=== PATIENT | male | born 1965 | race Caucasian/White ===

== ENCOUNTER 2019-08-27 14:14 | Inpatient (IN) | payer MEDICAID, SELFPAY ==
[2019-08-27] VITALS (11 sets, daily range): BP systolic 118–162; BP diastolic 69–109; PULSE 94–102; RESP 16–21; TEMP 36.2–37.1; O2SAT 94–99; BMI 32.2; BMI 27.1; BMI 27.2
[2019-08-27] MEDS: Naloxone 2 MG/2 ML Syringe IV (14:18)
--- NOTE | 2019-08-27 14:21 | CT_ITS ---
STUDY: CT BRAIN WITHOUT CONTRAST REASON FOR EXAM: Male, 53 years old. Unresponsive while cutting wood, hx seizures. RADIATION DOSAGE (If Supplied By Facility): CTDIvol = ( 44.99 ) mGy, DLP = ( 829.85 ) mGycm TECHNIQUE: Transaxial CT imaging of the brain was performed without administration of intravenous contrast material. Individualized dose optimization techniques were used for this CT. COMPARISON: No relevant priors. FINDINGS: Normal soft tissue structures. Normal calvarium. There is mild cerebral atrophy with widening of the extra-axial spaces and ventricular dilatation. There are a few areas of decreased attenuation within the white matter tracts of the supratentorial brain, consistent with microvascular disease changes. There is subtle low attenuation within the posterior aspect of the internal capsule suggesting possible prior ischemic change. Normal brainstem. Normal cerebellum. There is no intracranial hemorrhage. There are no findings of an acute ischemic infarction. Normal visualized paranasal sinuses. CT/Brain/Head without Contrast IMPRESSION: Mild atrophy no evidence of acute hemorrhage infarct or edema. Electronically Signed: Sofía Vargas MD at 14:51 EST Tel , Service support ,
--- NOTE | 2019-08-27 14:22 | EKG12_ITS ---
Test Reason : UNRESPONSIVE Blood Pressure : / mmHG Vent. Rate : 102 BPM Atrial Rate : 102 BPM P-R Int : 194 ms QRS Dur : 090 ms QT Int : 342 ms P-R-T Axes : 066 008 019 degrees QTc Int : 445 ms Sinus tachycardia Otherwise normal ECG Confirmed by SUKHDEV GILLESPIE MD ([id number]), development editor NICK SAMPSON ([id number] on 08/29/2019 3:15:11 PM Referred By: SHARMIN Confirmed By:SUKHDEV GILLESPIE MD
[2019-08-27 14:25] LABS: Bedside Glucose 126 mg/dL (70-110)
--- NOTE | 2019-08-27 14:25 | RAD_ITS ---
STUDY: X-RAY CHEST REASON FOR EXAM: Male, 53 years old. UNRESPONSIVE TECHNIQUE: Single AP portable view of the chest. COMPARISON: Prior comparison studies are not available for review at this time. FINDINGS: The lungs are clear and expanded. There is no demonstrated pleural abnormality. There is borderline cardiomegaly. Normal mediastinum and víctor. Normal visualized pulmonary arteries. The thoracic spine is not well-seen. Normal visualized thoracic spine. Normal visualized ribs, clavicles, and shoulders. There is no demonstrated abnormality of the visualized soft tissue structures of the upper abdomen. RAD/Chest 1 View (Portable) IMPRESSION: No active pulmonary disease. Electronically Signed: Rohit Jacobo MD at 14:57 EST Tel , Service support ,
[2019-08-27 14:37] LABS: Absolute Neutrophil Count 2.5 X10^3/uL (2.0-7.7); Basophil# 0.05 X10^3/uL; Basophil% 0.7 % (0-1); Eosinophil# 0.24 X10^3/uL; Eosinophils% 3.4 % (0-5); Hematocrit 34.4 % (40-54); Hemoglobin 11.3 g/dL (13.0-16.5); Lymphocyte % 50.7 % (19-41); Mean Corp Hgb Conc 32.8 g/dL (32-36); Mean Corpuscular Hgb 28.1 pg (27.0-32.0); Mean Corpuscular Volume 85.6 fL (80-94); Mean Platelet Vol. 10.2 fl (6.2-12.0); Monocyte# 0.67 X10^3/uL; Monocyte% 9.4 % (0-10); NRBC Flagged by Analyzer 0 % (0-5); Neutrophil # 2.52 X10^3/uL (2.7-7.7); Neutrophil % 35.5 % (47-70); Platelet Count 175 K/mm3 (150-450); RBC Distribution Width CV 12.7 % (11.6-14.6); Red Blood Count 4.02 M/mm3 (4.6-6.2); White Blood Count 7.1 K/mm3 (4.4-11.0)
[2019-08-27 14:38] LABS: International Normalized Ratio 1.1; Prothrombin Time (Protime)PT. 13.6 SECONDS (11.7-14.9)
[2019-08-27 14:39] LABS: Partial Thromboplast Time 30.5 Seconds (24.1-36.2)
[2019-08-27 14:44] LABS: Bacteria 0 SEEN /hpf (None Seen); Mucous, Urine 0 SEEN /hpf (<or=2+); Red Blood Cells-Urine 0 SEEN /hpf (0-5)
[2019-08-27 14:46] LABS: Color, Urine Yellow (Yellow); Glucose, Dipstick Normal (Normal); Ketone-Dipstick Negative (Negative); Leukocyte Esterase-Dipstick 25 /ul (Negative); Nitrite-Dipstick Negative (Negative); Occult Blood-Urine 50 /ul (Negative); Protein-Dipstick 100 mg/dl (Negative); Specific Gravity, Urine 1.025 (1.002-1.030); Urine Bilirubin Dipstick Negative (Negative); Urine Clarity Clear (Clear); Urine Urobilinogen 1 mg/dl (Normal)
[2019-08-27 14:46] LABS: Anion Gap 8 (5-15); BUN 61 mg/dL (7-18); Calcium,Total 9.4 mg/dL (8.5-10.1); Chloride 106 mmol/L (98-107); Creatinine, Serum 3.05 mg/dL (0.70-1.30); EST Glomerular Filtration Rate 23 mL/min (>60); Est Glom Filt Rate - Afr Amer 28 mL/min (>60); Estimated Creatinine Clearance 30.74 ml/min; Glucose 145 mg/dL (74-106); Potassium 4.5 mmol/L (3.5-5.1); Sodium Level 139 mmol/L (136-145)
[2019-08-27 14:47] LABS: Alcohol, Blood (Medical)-Serum < 3.0 mg/dL
[2019-08-27 14:53] LABS: White Blood Cells 0-5 SEEN /hpf (0-5)
[2019-08-27 14:54] LABS: Amorphous Sediment 2+; Squamous Epithelial Cells - UA 0-5 SEEN /hpf (0-5)
[2019-08-27] MEDS: 0.9% Normal Saline 1,000 ML 150 ML IV ×2 (15:02→22:11)
[2019-08-27 15:11] LABS: Amphetamine Urine VISTA NEGATIVE (<1000 ng/mL); Barbiturate Urine VISTA NEGATIVE (< 200 ng/mL); Benzodiazepine Urine VISTA NEGATIVE (< 200 ng/mL); Cocaine Urine VISTA NEGATIVE (< 300 ng/mL); Ecstacy Urine VISTA NEGATIVE (< 500 ng/mL); Methadone Urine VISTA NEGATIVE (< 300 ng/mL); PCP Urine VISTA NEGATIVE (< 25 ng/mL); THC Urine VISTA NEGATIVE (< 50 ng/mL); Vista UDS pH Range 5
[2019-08-27] MEDS: levETIRAcetam IV 1,000 MG/100 ML BAG 400 MG IV (15:57)
--- NOTE | 2019-08-27 16:42 | ED.VIS.GEN ---
History of Present Illness Chief Complaint: Unresponsive Informant: Park Aide Onset: Today Narrative: Patient brought in by EMS for unresponsiveness. Reported found by his significant other of 2 weeks outside [facility]. Known diabetic blood glucose 130s. Status post 2 mg of intranasal Narcan. Unknown medical history except for diabetes. No additional information on initial evaluation. Later discussion with nurse with a sister states he has known seizure history supposed be on Keppra however is not taking his medications. He was admitted May in the hospital in the ICU secondary to requiring intubation due to combativeness. Significant other was present states she lives down here and patient was visiting, he was out in the back cutting logs when she checked on him he was face down last normal was 30 minutes prior. Patient is doing well prior to symptoms. Prior similar symptoms: Yes Past Medical History - Allergies and Home Meds Allergies/Adverse Reactions: Allergies metoclopramide [From Reglan] Allergy (Verified 08/27/19 14:41) Unknown Penicillins [PCN] Allergy (Verified 08/27/19 14:41) Unknown Past Medical History: - - Seizure history, stage IV chronic kidney disease, diabetes Smoking Status: Unknown if ever smoked Review of Systems ROS: Unable to Obtain Physical Exam Vital Signs/Narrative: Vital Signs Temp Pulse Resp BP Pulse Ox 08/27/19 16:38 97.9 F 94 17 131/81 H 94 08/27/19 16:04 97.7 F L 97 16 140/84 H 97 08/27/19 15:35 97 18 97 08/27/19 15:02 97.7 F L 100 17 118/90 H 97 08/27/19 14:45 101 H 18 118/90 H 97 08/27/19 14:20 20 H 08/27/19 14:15 97.2 F L 102 H 21 H 121/76 H 99 Inital Vital Signs reviewed: Yes General: - - Patient unresponsive, clenching her teeth, sternal rub did note some contractures bilateral upper extremities. Patient protecting his airway, however noted some snoring. Head: Normocephalic, Atraumatic Eyes: Perrl, EOMI, - - No pinpoint pupils. ENT: Moist mucous membranes Cardiovascular: Regular rate, Tachycardia Respiratory: No distress, CTA bilaterally, Chest nontender Abdomen: Soft, Nontender, Nondistended, Normal bowel sounds Extremities: Nontender, No edema, - - There was left foot toe amputations. Skin: Normal color, No rash Neurological: - - Unresponsive no focal deficits. Diagnostic/Tx/Re-eval Chest X-Ray - ED: 1 View, Read by Radiologist, No Acute Disease Clinical Impression(s) from Imaging Studies Brain CT 08/27/19 14:21 IMPRESSION: Mild atrophy no evidence of acute hemorrhage infarct or edema. Electronically Signed: Sofía Vargas MD at 14:51 EST Tel , Service support , Chest X-Ray 08/27/19 14:25 IMPRESSION: No active pulmonary disease. Electronically Signed: Rohit Jacobo MD at 14:57 EST Tel , Service support , Abnormal Lab Results 08/27/19 08/27/19 08/27/19 14:19 14:20 14:20 WBC 7.1 RBC 4.02 L Hgb 11.3 L Hct 34.4 L MCV 85.6 MCH 28.1 MCHC 32.8 RDW Std Deviation 39.0 RDW Coeff of Britney 12.7 Plt Count 175 MPV 10.2 Immature Gran % (Auto) 0.300 Neut % (Auto) 35.5 L Lymph % (Auto) 50.7 H [place] % (Auto) 9.4 Eos % (Auto) 3.4 Baso % (Auto) 0.7 Absolute Neuts (auto) 2.5 Absolute Lymphs (auto) 3.60 Nucleated RBC % 0 PT 13.6 INR 1.1 APTT 30.5 Sodium Potassium Chloride Carbon Dioxide Anion Gap BUN Creatinine Estim Creat Clear Calc Est GFR (MDRD) Af Amer Est GFR (MDRD) Non-Af BUN/Creatinine Ratio Glucose Calcium Troponin I Urine Color Urine Clarity Urine pH Ur Specific [place] Urine Protein Urine Glucose (UA) Urine Ketones Urine Occult Blood Urine Nitrite Urine Bilirubin Urine Urobilinogen Ur Leukocyte Esterase Urine RBC Urine WBC Ur Squamous Epith Cells Amorphous Sediment Urine Bacteria Urine Mucus Urine Opiates Screen Urine Methadone Screen Ur Barbiturates Screen Ur Phencyclidine Scrn Ur Amphetamines Screen U Methamphetamin-MDMA U Benzodiazepines Scrn Urine Cocaine Screen U Cannabinoids Screen Ur Drug Screen Comment Ethyl Alcohol POC Glucose 126 H 08/27/19 08/27/19 08/27/19 14:20 14:20 14:40 WBC RBC Hgb Hct MCV MCH MCHC RDW Std Deviation RDW Coeff of Britney Plt Count MPV Immature Gran % (Auto) Neut % (Auto) Lymph % (Auto) [place] % (Auto) Eos % (Auto) Baso % (Auto) Absolute Neuts (auto) Absolute Lymphs (auto) Nucleated RBC % PT INR APTT Sodium 139 Potassium 4.5 Chloride 106 Carbon Dioxide 25.0 Anion Gap 8 BUN 61 H Creatinine 3.05 H Estim Creat Clear Calc 30.74 Est GFR (MDRD) Af Amer 28 L Est GFR (MDRD) Non-Af 23 L BUN/Creatinine Ratio 20.0 Glucose 145 H Calcium 9.4 Troponin I < 0.015 Urine Color Urine Clarity Urine pH Ur Specific [place] Urine Protein Urine Glucose (UA) Urine Ketones Urine Occult Blood Urine Nitrite Urine Bilirubin Urine Urobilinogen Ur Leukocyte Esterase Urine RBC Urine WBC Ur Squamous Epith Cells Amorphous Sediment Urine Bacteria Urine Mucus Urine Opiates Screen NEGATIVE Urine Methadone Screen NEGATIVE Ur Barbiturates Screen NEGATIVE Ur Phencyclidine Scrn NEGATIVE Ur Amphetamines Screen NEGATIVE U Methamphetamin-MDMA NEGATIVE U Benzodiazepines Scrn NEGATIVE Urine Cocaine Screen NEGATIVE U Cannabinoids Screen NEGATIVE Ur Drug Screen Comment Ethyl Alcohol < 3.0 POC Glucose 08/27/19 14:40 WBC RBC Hgb Hct MCV MCH MCHC RDW Std Deviation RDW Coeff of Britney Plt Count MPV Immature Gran % (Auto) Neut % (Auto) Lymph % (Auto) [place] % (Auto) Eos % (Auto) Baso % (Auto) Absolute Neuts (auto) Absolute Lymphs (auto) Nucleated RBC % PT INR APTT Sodium Potassium Chloride Carbon Dioxide Anion Gap BUN Creatinine Estim Creat Clear Calc Est GFR (MDRD) Af Amer Est GFR (MDRD) Non-Af BUN/Creatinine Ratio Glucose Calcium Troponin I Urine Color Yellow Urine Clarity Clear Urine pH 5.0 Ur Specific [place] 1.025 Urine Protein 100 H Urine Glucose (UA) Normal Urine Ketones Negative Urine Occult Blood 50 H Urine Nitrite Negative Urine Bilirubin Negative Urine Urobilinogen 1 H Ur Leukocyte Esterase 25 H Urine RBC 0 SEEN Urine WBC 0-5 SEEN Ur Squamous Epith Cells 0-5 SEEN Amorphous Sediment 2+ Urine Bacteria 0 SEEN Urine Mucus 0 SEEN Urine Opiates Screen Urine Methadone Screen Ur Barbiturates Screen Ur Phencyclidine Scrn Ur Amphetamines Screen U Methamphetamin-MDMA U Benzodiazepines Scrn Urine Cocaine Screen U Cannabinoids Screen Ur Drug Screen Comment Ethyl Alcohol POC Glucose - EKG Initial EKG Interpretation: Sinus Rhythm - Sinus tachycardia 102, no ST or T wave changes. - Medical Decision Making Patient unresponsive did not respond to intranasal Narcan per EMS. He is protecting his airway he was placed on oxygen for continuation. Attempt additional 2 of IV Narcan with no response. He was sent to CT scan of the head to rule out intracranial bleeds which returned negative. Work-up for mental status change initiated, in the interim did receive information from sister with a seizure history not taking his Keppra. Blood work stable tox screen, alcohol negative. Urine no leukocytes, urine culture was sent. He was started on Keppra 1 g load with his known history of noncompliance. Multiple re-evaluations he was more relaxed, moving all 4 extremities, he would occasionally open his eyes per significant other however he is not back to baseline. Lab work did note creatinine of 3, known stage IV kidney disease, no old labs for comparison. I discussed with Dr. Martinez for admission to PCU. ED Disposition - Plan for ED Patient: Disposition: Acute Care Hospital [facility] Diagnosis: Seizure, CKD (chronic kidney disease)
--- NOTE | 2019-08-27 16:43 | HP.PCM_ITS ---
History of Present Illness Date of Admission: 08/27/19 Chief Complaint: found unresponsive The patient is a 53 year old M with pmhx seizure disorder, CKDIV, diabetes, who presented to the ER after being found unresponsive. He was chopping wood on the back porch and was found by his girlfriend down on the ground. He had a small wound to his right forehead. EMS was called and he was responsive to painful stimuli per their report. He was brought to the hospital ER. CT showed chronic changes. He was given IV keppra. He was not taking his keppra. He last had a seizure in May, and before that he had one a year prior. He woke up briefly in the ER but went back to sleep and is not waking up to answer questions at this time. Hx provided by ER physician and girlfriend at bedside. [] Past Medical History Allergies metoclopramide [From Reglan] Allergy (Verified 08/27/19 14:41) Unknown Penicillins [PCN] Allergy (Verified 08/27/19 14:41) Unknown Home Medications: Ambulatory Orders Medication Instructions Recorded Keppra 08/27/19 Surgical History: - - toe amputations Lives: Spouse/ Significant Other Smoking Status: Unknown if ever smoked Alcohol: None Drugs: None Review of Systems Unable to obtain accurate/complete ROS d/t: pt not responsive at this time VTE Information - Inpt Only VTE Present on Admission: No VTE Mechan Device Prophylaxis: None VTE Pharm Prophylaxis ordered?: Yes - Physical Exam Vitals/I&O's: Vital Signs Temp Pulse Resp BP Pulse Ox 97.9 F 94 17 131/81 H 94 08/27/19 16:38 08/27/19 16:38 08/27/19 16:38 08/27/19 16:38 08/27/19 16:38 Oxygen Flow Rate (L/min) 97 Oxygen Delivery Method Room Air Weight: 237 lb 7.005 oz Body Mass Index (BMI) 32.2 Finger Stick Blood Glucose 1,426 Intake and Output for Last 24 Hours 08/25/19 08/26/19 08/27/19 23:59 23:59 23:59 Intake Total 100 / 100 Balance 100 / 100 General: Alert, Lethargic HEENT: Atraumatic, PERRLA, EOMI, Normocephalic Neck: Supple, No JVD, Negative Carotid Bruits Lungs: Clear to auscultation, Normal air movement Cardiovascular: Regular rate, No murmurs Abdomen: Bowel Sounds Present, Soft, Non Tender Extremities: No edema, Capillary Refill Less than 3 Seconds Skin: No rashes, No breakdown Musculoskeletal: No Tenderness to Palpation of Joints or Extremities, - - prior toe amputations Neurological: Cranial nerves II-XII grossly intact Psych/Mental Status: Normal Affect, Appropriate, Alert and oriented to time, place, person, mood and affect Laboratory Results 08/27/19 14:19: POC Glucose 126 H 08/27/19 14:20: WBC 7.1, RBC 4.02 L, Hgb 11.3 L, Hct 34.4 L, MCV 85.6, MCH 28.1, MCHC 32.8, RDW Std Deviation 39.0, RDW Coeff of Britney 12.7, Plt Count 175, MPV 10.2, Immature Gran % (Auto) 0.300, Neut % (Auto) 35.5 L, Lymph % (Auto) 50.7 H, [place] % (Auto) 9.4, Eos % (Auto) 3.4, Baso % (Auto) 0.7, Absolute Neuts (auto) 2.5, Absolute Lymphs (auto) 3.60, Nucleated RBC % 0 08/27/19 14:20: PT 13.6, INR 1.1, APTT 30.5 08/27/19 14:20: Sodium 139, Potassium 4.5, Chloride 106, Carbon Dioxide 25.0, Anion Gap 8, BUN 61 H, Creatinine 3.05 H, Estim Creat Clear Calc 30.74, Est GFR (MDRD) Af Amer 28 L, Est GFR (MDRD) Non-Af 23 L, BUN/Creatinine Ratio 20.0, Glucose 145 H, Calcium 9.4, Troponin I < 0.015 08/27/19 14:20: Ethyl Alcohol < 3.0 08/27/19 14:40: Urine Opiates Screen NEGATIVE, Urine Methadone Screen NEGATIVE, Ur Barbiturates Screen NEGATIVE, Ur Phencyclidine Scrn NEGATIVE, Ur Amphetamines Screen NEGATIVE, U Methamphetamin-MDMA NEGATIVE, U Benzodiazepines Scrn NEGATIVE, Urine Cocaine Screen NEGATIVE, U Cannabinoids Screen NEGATIVE, Ur Drug Screen Comment 08/27/19 14:40: Urine Color Yellow, Urine Clarity Clear, Urine pH 5.0, Ur Specific [place] 1.025, Urine Protein 100 H, Urine Glucose (UA) Normal, Urine Ketones Negative, Urine Occult Blood 50 H, Urine Nitrite Negative, Urine Bilirubin Negative, Urine Urobilinogen 1 H, Ur Leukocyte Esterase 25 H, Urine RBC 0 SEEN, Urine WBC 0-5 SEEN, Ur Squamous Epith Cells 0-5 SEEN, Amorphous Sediment 2+, Urine Bacteria 0 SEEN, Urine Mucus 0 SEEN Current Medications Sodium Chloride () 1,000 mls @ 150 mls/hr IV .Q6H40M [facility] Last Admin: 08/27/19 15:02 Dose: 150 mls/hr Documented by: Assessment/Plan 1. Breakthrough seizure - pt is currently post ictal. He has not been on his home keppra. loaded with keppra in the ER. Continue IV keppra. CT brain. CXR negative. Drug screen negative. Trop neg. EKG without acute ischemic changes. 2. CKDIV - unclear baseline. IV fluids overnight 3. DMt2 - q6h accuchecks, SSI if needed. prior amputations. DVT ppx: early ambulation This patient was seen by Maciej Woods PA-C under the supervision of Dr. Feldman.
[2019-08-27 18:45] LABS: Bedside Glucose 117 mg/dL (70-110)
[2019-08-28] VITALS (8 sets, daily range): BP systolic 107–154; BP diastolic 59–88; PULSE 73–91; RESP 16; TEMP 36.8–37.2; O2SAT 96–97
[2019-08-28 00:46] LABS: Bedside Glucose 123 mg/dL (70-110)
[2019-08-28] MEDS: 0.9% Normal Saline 1,000 ML 150 ML IV ×3 (04:58→18:14)
[2019-08-28 06:56] LABS: Bedside Glucose 111 mg/dL (70-110)
[2019-08-28 06:58] LABS: AST(SGOT) 24 U/L (15-37); Alanine Aminotransfer ALT/SGPT 24 U/L (16-61); Albumin, Serum 3.4 g/dL (3.2-5.0); Alkaline Phosphatase 60 U/L (45-117); Anion Gap 7 (5-15); BUN 46 mg/dL (7-18); BUN/Creat Ratio 22.5 RATIO (10-20); Calcium,Total 8.6 mg/dL (8.5-10.1); Chloride 110 mmol/L (98-107); Creatinine, Serum 2.04 mg/dL (0.70-1.30); EST Glomerular Filtration Rate 36 mL/min (>60); Est Glom Filt Rate - Afr Amer 44 mL/min (>60); Estimated Creatinine Clearance 52.17 ml/min; Globulin 3.5 g/dL (2.2-4.2); Glucose 107 mg/dL (74-106); Potassium 4.4 mmol/L (3.5-5.1); Protein, Total 6.9 g/dL (6.4-8.2); Sodium Level 142 mmol/L (136-145)
--- NOTE | 2019-08-28 09:37 | PN_ITS ---
Patient Problems: Active and Suspected Problems Seizure (Acute) Subjective: Pt states that he is unsure why he is here and not at [facility] as he lives in [place]. States that he doesn't chop wood and isnt sure why he would have been doing this. States (contradictory to the H&P) that he has been taking his Keppra (750 mg BID and Gabapentin 300 mg BID) and that the Keppra dose was just increased not long ago although he is unable to tell me the date the change was made. He did state that he sees a neurologist at [facility] and that an EEG (sounds like 24 hr) was done and he was noted to have seizure like activity when he was sleeping and that is when the dose adjustment was made. Vitals/I&O's: Vital Signs Temp Pulse Resp BP Pulse Ox 98.9 F 81 16 107/59 L 96 08/28/19 09:10 08/28/19 09:10 08/28/19 09:10 08/28/19 09:10 08/28/19 09:10 Oxygen Flow Rate (L/min) 97 Oxygen Delivery Method Room Air Weight: 104 kg Body Mass Index (BMI) 27.1 Finger Stick Blood Glucose 1,426 Intake and Output for Last 24 Hours 08/26/19 08/27/19 08/29/19 23:59 23:59 00:59 Intake Total 1162.5 / 1162.5 1847.5 / 1847.5 Output Total 550 / 550 Balance 1162.5 / 612.5 1297.5 / 1297.5 General: Alert, Oriented x3, Cooperative, No apparent distress, - - answers all questions appropriately but a bit slow with responses HEENT: PERRLA, EOMI, Normocephalic, EAC Clear, - - No LAD, scrape above R eye and ecchymosis below R eye, tender in those areas Oral: Moist Mucosa, No Gingival or Mucosal Lesions/ Ulcerations, - - fair dentition, mallampati 3 Neck: Supple, No JVD, Negative Carotid Bruits, Negative Hepatojugular Reflux, No Nodes, No Nuchal Rigidity, Trachea Midline, Thyroid Normal Size and Texture Lungs: Clear to auscultation, Normal air movement, No rhonchi, No wheeze, No rales Cardiovascular: Regular rate, Regular Rhythm, Normal S1, Normal S2, No murmurs, No Ectopic Activity, No rub noted, No Gallop Abdomen: Bowel Sounds Present, Soft, Non Tender, Non-Distended, No Hepato- splenomegaly, Obese, No hernias noted Extremities: No clubbing, No cyanosis, No edema, Capillary Refill Less than 3 Seconds, No Calf Tenderness Skin: No rashes, No breakdown, - - abrasion above L eye Musculoskeletal: No Tenderness to Palpation of Joints or Extremities, No Muscle Wasting Lymphatic: No Cervical, Supraclavicular, or Inguinal Adenopathy Neurological: Cranial nerves II-XII grossly intact, Deep Tendon Reflexes 2+/4 and Symmetrical, Neuro grossly intact, Motor Exam 5/5 strength throughout, - - A&Ox3 FELDER symmetrically Psych/Mental Status: Flat Affect, - Laboratory Results 08/27/19 14:19: POC Glucose 126 H 08/27/19 14:20: WBC 7.1, RBC 4.02 L, Hgb 11.3 L, Hct 34.4 L, MCV 85.6, MCH 28.1, MCHC 32.8, RDW Std Deviation 39.0, RDW Coeff of Britney 12.7, Plt Count 175, MPV 10.2, Immature Gran % (Auto) 0.300, Neut % (Auto) 35.5 L, Lymph % (Auto) 50.7 H, [place] % (Auto) 9.4, Eos % (Auto) 3.4, Baso % (Auto) 0.7, Absolute Neuts (auto) 2.5, Absolute Lymphs (auto) 3.60, Nucleated RBC % 0 08/27/19 14:20: PT 13.6, INR 1.1, APTT 30.5 08/27/19 14:20: Sodium 139, Potassium 4.5, Chloride 106, Carbon Dioxide 25.0, Anion Gap 8, BUN 61 H, Creatinine 3.05 H, Estim Creat Clear Calc 30.74, Est GFR (MDRD) Af Amer 28 L, Est GFR (MDRD) Non-Af 23 L, BUN/Creatinine Ratio 20.0, Glucose 145 H, Calcium 9.4, Troponin I < 0.015 08/27/19 14:20: Ethyl Alcohol < 3.0 08/27/19 14:40: Urine Opiates Screen NEGATIVE, Urine Methadone Screen NEGATIVE, Ur Barbiturates Screen NEGATIVE, Ur Phencyclidine Scrn NEGATIVE, Ur Amphetamines Screen NEGATIVE, U Methamphetamin-MDMA NEGATIVE, U Benzodiazepines Scrn NEGATIVE, Urine Cocaine Screen NEGATIVE, U Cannabinoids Screen NEGATIVE, Ur Drug Screen Comment 08/27/19 14:40: Urine Color Yellow, Urine Clarity Clear, Urine pH 5.0, Ur Specific [place] 1.025, Urine Protein 100 H, Urine Glucose (UA) Normal, Urine Ketones Negative, Urine Occult Blood 50 H, Urine Nitrite Negative, Urine Bilirubin Negative, Urine Urobilinogen 1 H, Ur Leukocyte Esterase 25 H, Urine RBC 0 SEEN, Urine WBC 0-5 SEEN, Ur Squamous Epith Cells 0-5 SEEN, Amorphous Sediment 2+, Urine Bacteria 0 SEEN, Urine Mucus 0 SEEN 08/27/19 18:26: POC Glucose 117 H 08/27/19 23:50: POC Glucose 123 H 08/28/19 05:05: Sodium 142, Potassium 4.4, Chloride 110 H, Carbon Dioxide 25.0, Anion Gap 7, BUN 46 H, Creatinine 2.04 H, Estim Creat Clear Calc 52.17, Est GFR (MDRD) Af Amer 44 L, Est GFR (MDRD) Non-Af 36 L, BUN/Creatinine Ratio 22.5 H, Glucose 107 H, Calcium 8.6, Total Bilirubin 1.10 H, AST 24, ALT 24, Alkaline Phosphatase 60, Total Protein 6.9, Albumin 3.4, Globulin 3.5, Albumin/Globulin Ratio 1.0 08/28/19 06:50: POC Glucose 111 H Current Medications Glucagon () 1 mg IM .X1 PRN PRN Reason: Hypoglycemia Sodium Chloride () 1,000 mls @ 150 mls/hr IV .Q6H40M [facility] Last Infusion: 08/28/19 09:30 Dose: 150 mls/hr Documented by: Levetiracetam 750 mg/ Sodium (Chloride) 107.5 mls @ 430 mls/hr IV Q12 [facility] Last Infusion: 08/28/19 09:30 Dose: Infused Documented by: Insulin Human Lispro (Humalog Kwikpen (Bkc)) 0 unit SC ACHS [facility]; Protocol Last Admin: 08/28/19 06:54 Dose: Not Given Documented by: Sodium Chloride () 10 - 40 ml IV UD PRN PRN Reason: SALINE FLUSH STROKE Vital Signs/Narrative: Vital Signs Temp Pulse Resp BP Pulse Ox 08/28/19 09:10 98.9 F 81 16 107/59 L 96 08/28/19 06:43 84 Medical Necessity - Tobacco Use Smoking Status: Never smoker Assessment/Plan All Active Problems Seizure (Acute) Seizure d/o with Breakthrough Seizures -inflicting information regarding compliance with meds -continue Keppra 750 mg BID but change to PO -restart Gabapentin 300 mg BID -seizure precautions -Tox screen was neg -no s/o infection -per pt, he follow with [facility]-main neurology (doctor unknown) -Consult Neurology LIZA/?CKD -sCr down to 2.04 this am (3.05 on admission -UA appears that he was fairly dry -continue IVF and repeat creat in am -Trend UO and Scr -avoid nephrotoxins -suspect pt does have renal disease at baseline with his DM HTN -on amlodipine and losartan at baseline -BP is currently in goal range -hold BP meds for now -if start to have elevations could add PRN vs restarting Norvasc Mild Anemia -repeat CBC in am -suspect will be lower as pt was contracted at the time of initial CBC Proteinuria -restart Losartan as soon a possible Elevated Bilirubin -repeat in am -may be 2/2 LIZA and dehydration DM-2 -Carb control diet -SSI DM Neuropathy - restart gabapentin DVT Prophylaxis -add sq heparin Code Status -Full Code Inpatient E&M: 55369 Subs Hosp L3
[2019-08-28 10:52] LABS: AST(SGOT) 18 U/L (15-37); Alanine Aminotransfer ALT/SGPT 22 U/L (16-61); Albumin, Serum 3.3 g/dL (3.2-5.0); Alkaline Phosphatase 57 U/L (45-117); Bilirubin, Direct 0.27 mg/dL (0.00-0.30); Globulin 2.9 g/dL (2.2-4.2); Protein, Total 6.2 g/dL (6.4-8.2)
[2019-08-28] MEDS: Insulin Lispro 100 UNIT/ML INSULN.PEN SC ×2 (11:38→17:13)
[2019-08-28 12:10] LABS: Bedside Glucose 177 mg/dL (70-110)
[2019-08-28] MEDS: Heparin Injection (Vial) 5,000 UNIT/ML VIAL 5000 UNIT SC ×2 (14:37→21:09)
[2019-08-28] MEDS: Gabapentin 300 MG Capsule PO (17:13)
[2019-08-28 17:31] LABS: Bedside Glucose 154 mg/dL (70-110)
[2019-08-28 21:25] LABS: Bedside Glucose 116 mg/dL (70-110)
[2019-08-28] MEDS: levETIRAcetam 250 MG Tablet 1000 MG PO (21:29)
[2019-08-29] VITALS (9 sets, daily range): BP systolic 149–159; BP diastolic 76–91; PULSE 77–140; RESP 16–18; TEMP 36.7–37.1; O2SAT 96–100
[2019-08-29] MEDS: 0.9% Normal Saline 1,000 ML 150 ML IV ×4 (00:13→20:31)
[2019-08-29 06:24] LABS: Anion Gap 4 (5-15); BUN 28 mg/dL (7-18); BUN/Creat Ratio 17.1 RATIO (10-20); Calcium,Total 8.6 mg/dL (8.5-10.1); Chloride 114 mmol/L (98-107); Creatinine, Serum 1.64 mg/dL (0.70-1.30); EST Glomerular Filtration Rate 47 mL/min (>60); Est Glom Filt Rate - Afr Amer 57 mL/min (>60); Estimated Creatinine Clearance 64.89 ml/min; Glucose 144 mg/dL (74-106); Potassium 4.5 mmol/L (3.5-5.1); Sodium Level 144 mmol/L (136-145)
[2019-08-29] MEDS: Heparin Injection (Vial) 5,000 UNIT/ML VIAL 5000 UNIT SC ×3 (06:30→21:49)
[2019-08-29 06:45] LABS: Bedside Glucose 115 mg/dL (70-110)
[2019-08-29] MEDS: Gabapentin 300 MG Capsule PO ×2 (08:25→16:43)
[2019-08-29] MEDS: levETIRAcetam 250 MG Tablet 1000 MG PO ×2 (08:28→21:45)
[2019-08-29] MEDS: Insulin Lispro 100 UNIT/ML INSULN.PEN SC ×2 (11:38→21:45)
[2019-08-29 11:46] LABS: Bedside Glucose 150 mg/dL (70-110)
--- NOTE | 2019-08-29 11:50 | CASEMGMT ---
SAMANTHA NAVA assessment: Face to Face with patient for initial transition planning/care coordination assessment. SAMANTHA NAVA introduced self and role at [facility], pt voices understanding and consents to assessment at this time. Pt is sitting up in chair in no distress at this time. Pt is A/Ox4 at this time and answers all questions appropriately at this time. Care providers, pharmacy, and demographics verified/updated at this time. Presentation: Pt found unresponsive by girlfriend, face down after chopping wood. Admitting dx: Seizure PCP: Heather [facility] matthew Specialists: Neuro at [facility] and [facility] Preferred Pharmacy: [facility] Insurance: [facility] Prescription Benefit: [facility] Living Will/HPOA: Pt states does not have LW/HPOA and declines AD info at this time. LNOK: Terir Perry, sister; Doreen Agee, friend Living Arrangements: Pt states lives with sister on main level of home and states no concerns at home at this time. Pt states is normally independent with ADL's. Transportation: Pt states drives self and states no transportation concerns at this time. DME/HHC: Pt states has no current DME or need for any at this time. Pt states has had HHC in the past but states no hx of SNF. Pt states no concerns with going home at time of discharge. Pt states is on disability. Pt states does not smoke or drink ETOH. Pt states no further concerns/needs at this time. CM to follow for any further discharge planning/needs. Advised pt to ask for CM if any further questions/concerns/needs arise, voices understanding. Pt Goal: Home Plan[place] SAMANTHA NAVA
--- NOTE | 2019-08-29 12:28 | PCM.PN.HOSP ---
Patient Problems: Active and Suspected Problems Seizure (Acute) Subjective: NO further seizure activity. Pt remembering some of what happened. Now telling me he was visiting a girl he had met here is [place] (lives with sister in [place]) and was getting wood ready for a bonfire and states that she came out and he was on his knees holding an ax and in a daze and that's when she brought him to the ED here. Event was completely unwitnessed. States that he is feeling better overall. Vitals/I&O's: Vital Signs Temp Pulse Resp BP Pulse Ox 98.5 F 140 H 18 149/89 H 98 08/29/19 09:30 08/29/19 09:33 08/29/19 09:30 08/29/19 09:30 08/29/19 09:30 Oxygen Flow Rate (L/min) 97 Oxygen Delivery Method Room Air Weight: 104 kg Body Mass Index (BMI) 27.1 Finger Stick Blood Glucose 1,426 Intake and Output for Last 24 Hours 08/27/19 08/28/19 08/29/19 22:59 23:59 23:59 Intake Total 2760.0 / 2760.0 Output Total Balance 2760.0 / 2760.0 General: Alert, Oriented x3, Cooperative, No apparent distress, Well developed, Well nourished Oral: Moist Mucosa, No Gingival or Mucosal Lesions/ Ulcerations Lungs: Clear to auscultation, Normal air movement, No rhonchi, No wheeze, No rales Cardiovascular: Regular rate, Regular Rhythm, Normal S1, Normal S2, No rub noted, No Gallop Abdomen: Bowel Sounds Present, Soft, Non Tender, Non-Distended, No Hepato-splenomegaly, No hernias noted Extremities: No clubbing, No cyanosis, No edema, Capillary Refill Less than 3 Seconds Psych/Mental Status: Flat Affect, - - poor eye contact, A&O x 3 Microbiology Past 72 Hours 08/27/19 14:40 Urine, Catheterized Urine Culture - Preliminary Culture exhibits no growth. Laboratory Results 08/28/19 17:12: POC Glucose 154 H 08/28/19 21:08: POC Glucose 116 H 08/29/19 05:14: Sodium 144, Potassium 4.5, Chloride 114 H, Carbon Dioxide 26.0, Anion Gap 4 L, BUN 28 H, Creatinine 1.64 H, Estim Creat Clear Calc 64.89, Est GFR (MDRD) Af Amer 57 L, Est GFR (MDRD) Non-Af 47 L, BUN/Creatinine Ratio 17.1, Glucose 144 H, Calcium 8.6 08/29/19 06:29: POC Glucose 115 H 08/29/19 11:37: POC Glucose 150 H [facility] Last Admin: 08/29/19 08:25 Dose: 300 mg Documented by: Glucagon () 1 mg IM .X1 PRN PRN Reason: Hypoglycemia Heparin Sodium (Porcine) (Heparin Na) 5,000 unit SC Q8 [facility] Last Admin: 08/29/19 06:30 Dose: 5,000 unit Documented by: Sodium Chloride () 1,000 mls @ 150 mls/hr IV .Q6H40M [facility] Last Admin: 08/29/19 06:30 Dose: 150 mls/hr Documented by: Insulin Human Lispro (Humalog Kwikpen (Bkc)) 0 unit SC ACHS [facility]; Protocol Last Admin: 08/29/19 11:38 Dose: 2 units Documented by: Levetiracetam (Keppra Tablet) 1,000 mg PO BID [facility] Last Admin: 08/29/19 08:28 Dose: 1,000 mg Documented by: Sodium Chloride () 10 - 40 ml IV UD PRN PRN Reason: SALINE FLUSH STROKE Vital Signs/Narrative: Vital Signs Temp Pulse Resp BP Pulse Ox 08/29/19 09:33 140 H 08/29/19 09:30 98.5 F 87 18 149/89 H 98 Medical Necessity - Tobacco Use Smoking Status: Never smoker Assessment/Plan All Active Problems Seizure (Acute) Seizure d/o with Breakthrough Seizures -inflicting information regarding compliance with meds and overall story of what happened -d/w Neuro who evaluated the pt yesterday -recommendations were to increase Keppra to 1000 mg BID (done afternoon 08/27) -talk to sister--> called again but no answer again today -Try to add on Keppra level to admit labs -done but this is a send out and was sent out this am -continue Gabapentin 300 mg BID -seizure precautions -Tox screen was neg -no s/o infection and urine cx is NGTD -per pt, he follow with [facility]-main neurology (doctor unknown) -Consult Neurology LIZA/?CKD -sCr down to 1.64 this am (3.05 on admission -UA appears that he was fairly dry -continue IVF again today and repeat creat in am -Trend UO and Scr -avoid nephrotoxins -suspect pt does have renal disease at baseline with his DM HTN -on amlodipine and losartan at baseline -BP up a bit today -add back amlodipine today Mild Anemia -repeat CBC in am -suspect will be lower as pt was contracted at the time of initial CBC Proteinuria -restart Losartan as soon a possible DM-2 -Carb control diet -SSI -BGT at goal DM Neuropathy - contiue gabapentin DVT Prophylaxis -sq heparin Code Status -Full Code Inpatient E&M: 35422 Subs Hosp L2
[2019-08-29 16:51] LABS: Bedside Glucose 138 mg/dL (70-110)
[2019-08-29 22:35] LABS: Bedside Glucose 176 mg/dL (70-110)
[2019-08-30 03:00] VITALS: PULSE 89
[2019-08-30] MEDS: 0.9% Normal Saline 1,000 ML 150 ML IV ×2 (03:04→08:32)
[2019-08-30 03:15] VITALS: BP 148/90; PULSE 88; RESP 16; TEMP 36.9; O2SAT 98
--- NOTE | 2019-08-30 04:44 | NUR.TO.PHY ---
Patient is requesting the 250 mg capsules x4 prescription when he goes home. He is worried it will be written for 1000 mg tablets and he is unable to swallow them.
[2019-08-30 05:58] LABS: Absolute Lymphocyte Count 1.65 X10^3/uL (0.83-4.51); Absolute Neutrophil Count 2.3 X10^3/uL (2.0-7.7); Basophil# 0.03 X10^3/uL; Basophil% 0.7 % (0-1); Eosinophil# 0.17 X10^3/uL; Eosinophils% 3.7 % (0-5); Hematocrit 29.6 % (40-54); Hemoglobin 9.8 g/dL (13.0-16.5); Lymphocyte # 1.65 X10^3/ul (4.0); Lymphocyte % 36.3 % (19-41); Mean Corp Hgb Conc 33.1 g/dL (32-36); Mean Corpuscular Hgb 27.9 pg (27.0-32.0); Mean Corpuscular Volume 84.3 fL (80-94); Mean Platelet Vol. 9.5 fl (6.2-12.0); Monocyte% 8.8 % (0-10); NRBC Flagged by Analyzer 0 % (0-5); Neutrophil # 2.28 X10^3/uL (2.7-7.7); Neutrophil % 50.3 % (47-70); Platelet Count 140 K/mm3 (150-450); RBC Distribution Width CV 12.6 % (11.6-14.6); RBC Distribution Width SD 37.6 fl (35.1-43.9); Red Blood Count 3.51 M/mm3 (4.6-6.2); White Blood Count 4.5 K/mm3 (4.4-11.0)
[2019-08-30 06:26] LABS: Anion Gap 3 (5-15); BUN 18 mg/dL (7-18); BUN/Creat Ratio 13.3 RATIO (10-20); Calcium,Total 8.6 mg/dL (8.5-10.1); Chloride 115 mmol/L (98-107); Creatinine, Serum 1.35 mg/dL (0.70-1.30); EST Glomerular Filtration Rate 59 mL/min (>60); Est Glom Filt Rate - Afr Amer 71 mL/min (>60); Estimated Creatinine Clearance 78.83 ml/min; Glucose 123 mg/dL (74-106); Potassium 4.4 mmol/L (3.5-5.1); Sodium Level 144 mmol/L (136-145)
[2019-08-30] MEDS: Heparin Injection (Vial) 5,000 UNIT/ML VIAL 5000 UNIT SC (06:32)
[2019-08-30 06:35] LABS: Bedside Glucose 106 mg/dL (70-110)
[2019-08-30 07:00] VITALS: PULSE 83
[2019-08-30] MEDS: Gabapentin 300 MG Capsule PO (08:32)
[2019-08-30] MEDS: amLODIPine 10 MG Tablet PO (08:32)
[2019-08-30] MEDS: levETIRAcetam 250 MG Tablet 1000 MG PO (08:32)
[2019-08-30 09:45] VITALS: BP 153/80; PULSE 82; RESP 12; TEMP 37.1; O2SAT 97
--- NOTE | 2019-08-30 10:19 | PCM.PN.HOSP ---
Patient Problems: Active and Suspected Problems Seizure (Acute) Subjective: Anxious to go home. Feeling okay. Frustrated because no one knows what happened but again I explained that this was an unwitnessed event and recommend close f/u with his neurologist at [facility]. Pt informed that he is not to drive until he sees his primary neurologist and is cleared by him. Vitals/I&O's: Vital Signs Temp Pulse Resp BP Pulse Ox 98.7 F 82 12 153/80 H 97 08/30/19 09:45 08/30/19 09:45 08/30/19 09:45 08/30/19 09:45 08/30/19 09:45 Oxygen Flow Rate (L/min) 97 Oxygen Delivery Method Room Air Weight: 104 kg Body Mass Index (BMI) 27.1 Finger Stick Blood Glucose 1,426 Intake and Output for Last 24 Hours 08/28/19 08/29/19 08/30/19 23:59 23:59 23:59 Intake Total 5360.0 / 5660.0 2322.5 / 2322.5 Output Total 2 / 2 Balance 5358.0 / 5658.0 2322.5 / 2322.5 General: Alert, Oriented x3, Cooperative, No apparent distress, Well developed, Well nourished HEENT: PERRLA, EOMI, Normocephalic, EAC Clear, - - abrasion above L eye-healing and mild black eye Oral: Moist Mucosa, No Gingival or Mucosal Lesions/ Ulcerations Neck: Supple, No JVD, Negative Hepatojugular Reflux, No Nodes, No Nuchal Rigidity Lungs: Clear to auscultation, Normal air movement, No rhonchi, No wheeze, No rales Cardiovascular: Regular rate, Regular Rhythm, Normal S1, Normal S2, No murmurs, No Ectopic Activity, No rub noted, No Gallop Abdomen: Bowel Sounds Present, Soft, Non Tender, Non-Distended, No Hepato-splenomegaly, Passing Flatus, Obese, No hernias noted Extremities: No clubbing, No cyanosis, No edema Skin: No rashes, No breakdown Musculoskeletal: No Tenderness to Palpation of Joints or Extremities Lymphatic: No Cervical, Supraclavicular, or Inguinal Adenopathy Neurological: Cranial nerves II-XII grossly intact, Deep Tendon Reflexes 2+/4 and Symmetrical, Neuro grossly intact, Motor Exam 5/5 strength throughout Psych/Mental Status: Appropriate, Flat Affect, - - A&O x 4 Microbiology Past 72 Hours 08/27/19 14:40 Urine, Catheterized Urine Culture - Final Culture exhibits no growth. Laboratory Results 08/29/19 11:37: POC Glucose 150 H 08/29/19 16:44: POC Glucose 138 H 08/29/19 21:45: POC Glucose 176 H 08/30/19 05:44: Sodium 144, Potassium 4.4, Chloride 115 H, Carbon Dioxide 26.0, Anion Gap 3 L, BUN 18, Creatinine 1.35 H, Estim Creat Clear Calc 78.83, Est GFR (MDRD) Af Amer 71, Est GFR (MDRD) Non-Af 59 L, BUN/Creatinine Ratio 13.3, Glucose 123 H, Calcium 8.6 08/30/19 05:44: WBC 4.5, RBC 3.51 L, Hgb 9.8 L, Hct 29.6 L, MCV 84.3, MCH 27.9, MCHC 33.1, RDW Std Deviation 37.6, RDW Coeff of Britney 12.6, Plt Count 140 L, MPV 9.5, Immature Gran % (Auto) 0.200, Neut % (Auto) 50.3, Lymph % (Auto) 36.3, [place] % (Auto) 8.8, Eos % (Auto) 3.7, Baso % (Auto) 0.7, Absolute Neuts (auto) 2.3, Absolute Lymphs (auto) 1.65, Nucleated RBC % 0 08/30/19 06:23: POC Glucose 106 Current Medications Amlodipine Besylate (Norvasc) 10 mg PO DAILY [facility] Last Admin: 08/30/19 08:32 Dose: 10 mg Documented by: Gabapentin (Neurontin) 300 mg PO BIDCM [facility] Last Admin: 08/30/19 08:32 Dose: 300 mg Documented by: Glucagon () 1 mg IM .X1 PRN PRN Reason: Hypoglycemia Heparin Sodium (Porcine) (Heparin Na) 5,000 unit SC Q8 [facility] Last Admin: 08/30/19 06:32 Dose: 5,000 unit Documented by: Sodium Chloride () 1,000 mls @ 150 mls/hr IV .Q6H40M [facility] Last Admin: 08/30/19 08:32 Dose: 150 mls/hr Documented by: Insulin Human Lispro (Humalog Ayanna (Bkc)) 0 unit SC ACHS [facility]; Protocol Last Admin: 08/30/19 06:41 Dose: Not Given Documented by: Levetiracetam (Keppra Tablet) 1,000 mg PO BID [facility] Last Admin: 08/30/19 08:32 Dose: 1,000 mg Documented by: Sodium Chloride () 10 - 40 ml IV UD PRN PRN Reason: SALINE FLUSH STROKE Vital Signs/Narrative: Vital Signs Temp Pulse Resp BP Pulse Ox 08/30/19 09:45 98.7 F 82 12 153/80 H 97 08/30/19 07:00 83 Medical Necessity - Tobacco Use Smoking Status: Never smoker Assessment/Plan All Active Problems Seizure (Acute) Seizure d/o with Breakthrough Seizures -inflicting information regarding compliance with meds and overall story of what happened -d/w Neuro who evaluated the pt yesterday -recommendations were to increase Keppra to 1000 mg BID (done afternoon 08/27) -talk to sister--> called no answer x 2 -Try to add on Keppra level to admit labs -done but this is a send out and is pending -continue Gabapentin 300 mg BID -seizure precautions -Tox screen was neg -no s/o infection and urine cx is NGTD -per pt, he follow with [facility]-main neurology (doctor name unknown by pt) -pt is not to drive until cleared by the primary neurologist--> d/w pt and pt voices understanding LIZA/?CKD -sCr down to 1.35 this am (3.05 on admission) -UA appeared that he was fairly dry -d/c IVF -suspect pt does have renal disease at baseline with his DM HTN -on amlodipine and losartan at baseline -restart Losartan with sCr better Mild Anemia -hgb down but no need for transfusion and no s/o bleeding -suspect will be lower as pt was contracted at the time of initial CBC Proteinuria -restart Losartan today DM-2 -Carb control diet -SSI -BGT at goal DM Neuropathy - continue gabapentin DVT Prophylaxis -sq heparin Code Status -Full Code Dispo -Home today -F/U with Neurologist at [facility] in next 1-2 weeks -No Driving until cleared by neuro at [facility] Inpatient E&M: 32434 Disch Hosp
--- NOTE | 2019-08-30 10:37 | PCM.DC.SUM ---
Discharge Date and Diagnosis - Problem List Patient Problems: Active and Suspected Problems Seizure (Acute) Date of Admission: 08/27/19 Date of Discharge: 08/30/19 - Primary Discharge Diagnosis Active and Suspected Problems Seizure (Acute) - Secondary Discharge Diagnosis Chronic Problems CKD (chronic kidney disease) (Chronic) Hospital Course and Treatment Neurology Operations: None Summary of Care Provided: Mr. Howard is a 54 year old M who was brought to the ED on 08/26 by the squad after she found him out back dazed and somewhat unresponsive. He was out back of her house chopping wood for a bonfire and she was in the house. She was found down on the ground by her with a sm R forehead abrasion and was responsive only to pain upon admission. Per sister or girlfriend he had not been his Keppra for about 2 weeks but per pt he has been taking Keppra. He was loaded with Keppra in the ED. A keppra level was ordered off of the initial lab work in the ED but the timing of the bolus and the lab work is unknown. That level is pending at d/c. Neurology was consulted and they recommended to increase the keppra dose to 1000mg BID and f/u with his neurologist at [facility]. Pt is unsure of that physicians name. He had no further episodes while admitted. He was informed that he is not to drive until he f/u with his primary neurologist. He was also noted to have LIZA with a sCr > 3. This was fluid responsive and was 1.35 upon d/c. Patient Problems: Active and Suspected Problems Seizure (Acute) - Physical Exam Vitals/I&O's: Vital Signs Temp Pulse Resp BP Pulse Ox 98.7 F 82 12 153/80 H 97 08/30/19 09:45 08/30/19 09:45 08/30/19 09:45 08/30/19 09:45 08/30/19 09:45 Oxygen Flow Rate (L/min) 97 Oxygen Delivery Method Room Air Weight: 104 kg Body Mass Index (BMI) 27.1 Finger Stick Blood Glucose 1,426 Intake and Output for Last 24 Hours 08/28/19 08/29/19 08/30/19 23:59 23:59 23:59 Intake Total 5360.0 / 5660.0 2322.5 / 2322.5 Output Total 2 / 2 Balance 5358.0 / 5658.0 2322.5 / 2322.5 Microbiology Past 72 Hours 08/27/19 14:40 Urine, Catheterized Urine Culture - Final Culture exhibits no growth. Laboratory Results 08/29/19 11:37: POC Glucose 150 H 08/29/19 16:44: POC Glucose 138 H 08/29/19 21:45: POC Glucose 176 H 08/30/19 05:44: Sodium 144, Potassium 4.4, Chloride 115 H, Carbon Dioxide 26.0, Anion Gap 3 L, BUN 18, Creatinine 1.35 H, Estim Creat Clear Calc 78.83, Est GFR (MDRD) Af Amer 71, Est GFR (MDRD) Non-Af 59 L, BUN/Creatinine Ratio 13.3, Glucose 123 H, Calcium 8.6 08/30/19 05:44: WBC 4.5, RBC 3.51 L, Hgb 9.8 L, Hct 29.6 L, MCV 84.3, MCH 27.9, MCHC 33.1, RDW Std Deviation 37.6, RDW Coeff of Britney 12.6, Plt Count 140 L, MPV 9.5, Immature Gran % (Auto) 0.200, Neut % (Auto) 50.3, Lymph % (Auto) 36.3, [place] % (Auto) 8.8, Eos % (Auto) 3.7, Baso % (Auto) 0.7, Absolute Neuts (auto) 2.3, Absolute Lymphs (auto) 1.65, Nucleated RBC % 0 08/30/19 06:23: POC Glucose 106 Current Medications Amlodipine Besylate (Norvasc) 10 mg PO DAILY [facility] Last Admin: 08/30/19 08:32 Dose: 10 mg Documented by: Gabapentin (Neurontin) 300 mg PO BIDCM [facility] Last Admin: 08/30/19 08:32 Dose: 300 mg Documented by: Glucagon () 1 mg IM .X1 PRN PRN Reason: Hypoglycemia Heparin Sodium (Porcine) (Heparin Na) 5,000 unit SC Q8 [facility] Last Admin: 08/30/19 06:32 Dose: 5,000 unit Documented by: Sodium Chloride () 1,000 mls @ 150 mls/hr IV .Q6H40M [facility] Last Admin: 08/30/19 08:32 Dose: 150 mls/hr Documented by: Insulin Human Lispro (Humalog Kwikpen (Bkc)) 0 unit SC ACHS [facility]; Protocol Last Admin: 08/30/19 06:41 Dose: Not Given Documented by: Levetiracetam (Keppra Tablet) 1,000 mg PO BID [facility] Last Admin: 08/30/19 08:32 Dose: 1,000 mg Documented by: Sodium Chloride () 10 - 40 ml IV UD PRN PRN Reason: SALINE FLUSH Home Medications: Medications to take at Discharge Amlodipine [Norvasc] 10 mg PO DAILY 08/27/19 Gabapentin [Neurontin] 300 mg PO BID 08/27/19 Losartan Potassium 50 mg PO DAILY 08/27/19 Sildenafil Citrate 100 mg PO PRN PRN 08/27/19 Testosterone Cypionate 200 mg IM QWEEK 08/27/19 levETIRAcetam tablet [Keppra tablet] 1,000 mg PO BID #120 tab 08/30/19 Following Prescrptions Were Given to Patient: levETIRAcetam tablet [Keppra tablet] 1,000 mg PO BID #120 tab Transmission Status: Pending to [id number] - [place] Primary Care Physician: Care Physician,No Primary [Primary Care Provider] - Medical Necessity - Tobacco Use Smoking Status: Never smoker Meaningful Use Info Meaningful Use Diagnoses (Choose all that apply): None applicable
--- NOTE | 2019-08-30 10:49 | PCM.DC ---
- Discharge Diagnoses Current Active Problems: Current Active and Chronic Problems Seizure (Acute) CKD (chronic kidney disease) (Chronic) You will use the following diet at home:: Calorie/Carbohydrate Controlled (specify 1200, 1400, etc) Your food should be the consistency of: Regular Your liquids should be the consistency of: Regular/Thin Discharge Activity: Return to Normal Activity, May Not Drive May resume sexual activity in: No Restrictions Pending Tests on Discharge: Keppra Level from admission pending at d/c Allergies/Adverse Reactions: Allergies metoclopramide [From Reglan] Allergy (Verified 08/27/19 14:41) Unknown Penicillins [PCN] Allergy (Verified 08/27/19 14:41) Unknown Medications to take at Discharge Amlodipine [Norvasc] 10 mg PO DAILY 08/27/19 Gabapentin [Neurontin] 300 mg PO BID 08/27/19 Losartan Potassium 50 mg PO DAILY 08/27/19 Sildenafil Citrate 100 mg PO PRN PRN 08/27/19 Testosterone Cypionate 200 mg IM QWEEK 08/27/19 levETIRAcetam tablet [Keppra tablet] 1,000 mg PO BID #120 tab 08/30/19 The following prescriptions were given: levETIRAcetam tablet [Keppra tablet] 1,000 mg PO BID #120 tab Transmission Status: Pending to [id number] [place] Primary Care Physician: Care Physician,No Primary [Primary Care Provider] - F-PCP [Other] Please follow up with your Primary Care Physician in: 1-2 weeks Test Results: Test results from this visit will be discussed in further detail at your follow-up appointment, if applicable. Please Follow Up With: Neurology at [facility] When: 1-2 weeks Proposed Discharge Date: 08/30/19
--- NOTE | 2019-08-30 11:26 | PHA.DC.MR ---
Pharmacy Service has performed discharge medication reconciliation for this patient. The patient had no new medications at time of discharge review, just a change in Keppra dose. The patient's discharge medication list was reviewed for discrepancies and discrepancies were resolved. Home Medications Amlodipine [Norvasc] 10 mg PO DAILY 08/27/19 Gabapentin [Neurontin] 300 mg PO BID 08/27/19 Losartan Potassium 50 mg PO DAILY 08/27/19 Sildenafil Citrate 100 mg PO PRN PRN 08/27/19 Testosterone Cypionate 200 mg IM QWEEK 08/27/19 levETIRAcetam tablet [Keppra tablet] 1,000 mg PO BID #120 tab 08/30/19
[2019-08-30 12:06] LABS: Bedside Glucose 111 mg/dL (70-110)
[2019-08-31 13:14] LABS: KEPPRA (LEVETIRACETAM) 42.6 ug/mL (10.0-40.0)
== END 2019-08-30 16:01 | disposition home or self-care (01) | DRG 53 ==
LOC: ED 14:37 → PCU 16:49
PROVIDERS: Admitting Provider Internal Medicine; Emergency Provider Emergency Medicine; Visit Provider Internal Medicine
DX: G40.909 Epilepsy, unspecified, not intractable, without status epilepticus (principal); E11.22 Type 2 diabetes mellitus with diabetic chronic kidney disease; I12.9 Hypertensive chronic kidney disease with stage 1 through stage 4 chronic kidney disease, or unspecified chronic kidney disease; D64.9 Anemia, unspecified; E11.40 Type 2 diabetes mellitus with diabetic neuropathy, unspecified; N17.9 Acute kidney failure, unspecified; N18.9 Chronic kidney disease, unspecified
CPT/HCPCS: 36415; 70450; 71045; 80048; 80053; 80076; 80177; 80307; 80320; 81001; 82962; 84484; 85025; 85610; 85730; 87086; 93005; 99285; J7030; A4216; G0480

== ENCOUNTER 2022-03-23 13:41 | Emergency (ER) | payer MEDICARE, MEDICAID, SELFPAY ==
[2022-03-23 13:42] VITALS: PULSE 120; RESP 22; TEMP 36.9; O2SAT 97; BMI 33.9
--- NOTE | 2022-03-23 13:56 | RAD_ITS ---
STUDY: X-RAY CHEST REASON FOR EXAM: Male, 56 years old. Combative TECHNIQUE: Single AP portable view of the chest. COMPARISON: August 27, 2019 FINDINGS: The lungs are clear and expanded. There is no demonstrated pleural abnormality. Normal size heart. Normal mediastinum and víctor. Normal visualized pulmonary arteries. Normal visualized aortic arch and descending thoracic aorta. Normal visualized thoracic spine. Normal visualized ribs, clavicles, and shoulders. There is no demonstrated abnormality of the visualized soft tissue structures of the upper abdomen. RAD/Chest 1 View (Portable) IMPRESSION: Normal x-ray examination of the chest. Electronically Signed: Erich Yu MD at 15:17 EDT ,
[2022-03-23 13:58] VITALS: BP 188/106; PULSE 109; RESP 30; TEMP 37.1; O2SAT 95
--- NOTE | 2022-03-23 13:58 | EX.ED.DYSGE1 ---
HPI History of Present Illness Chief Complaint: Seizure Detail of Chief Complaint: History per his and paramedics. Informant: spouse/S.O. and EMS Onset/Context/Timing Onset: Today Context: Sudden Onset Timing: Continuous Current Severity: Moderate Maximum Severity: Moderate Narrative Narrative: 56-year-old male history of chronic kidney disease, insulin-dependent diabetes and seizure disorder. Has not had a seizure for 2 years. Is on Keppra. Recently was admitted to [facility] thinks it was for pancreatitis. Possibly gallstone pancreatitis. He was hospitalized around 8 days and was just discharged on Thursday. They were at [facility] today. And he had a seizure while in the car. No fall or injury. She called the squad. He denies any known seizure disorder. His last one was 2+ years ago. Prior similar symptoms: Yes Recent Illness/Hospitalization: Yes [facility] Medical History Seizure Home Medications amlodipine 10 mg tablet 10 mg PO DAILY blood pressure 08/27/19 [History Last Taken Unknown] gabapentin 300 mg capsule 300 mg PO BID neuropathy/pain 08/27/19 [History Last Taken Unknown] losartan 50 mg tablet 50 mg PO DAILY blood pressure 08/27/19 [History Last Taken Unknown] sildenafil 100 mg tablet 100 mg PO PRN PRN erectile dysfunction 08/27/19 [History Last Taken Unknown] testosterone cypionate 200 mg/mL intramuscular oil 200 mg IM QWEEK hormones 08/27/19 [History Last Taken Unknown] levetiracetam 250 mg tablet 1,000 mg PO BID #120 tabs 08/30/19 [Rx Last Taken Unknown] Allergy/AdvReac Type Severity Reaction Status Date / Time metoclopramide [From Reglan] Allergy Unknown Verified 08/27/19 14:41 Penicillins [PCN] Allergy Unknown Verified 08/27/19 14:41 Social History Smoking Status: Never smoker ROS ROS ED ROS Narrative Recent hospitalization. Unable to obtain any history from this patient due to him being combative and postictal. I did obtain some history from his . And the paramedics. Review of Systems ROS Unobtainable: due to encephalopathy EXAM Physical Exam Narrative Exam Narrative: 56-year-old male being four-point restraint because he is combative. He is postictal. Vital signs are stable he is tachycardic to 120. Pulse ox is 97%. H EENT exam unremarkable atraumatic. Pupils are reactive light. Extra motions intact. Neck nontender. Lungs are clear. Heart tachycardic rate about 120 no murmur. Abdomen soft nondistended normal bowel sounds no peritoneal signs. He has bruising on his abdominal wall most likely from recent anticoagulation shots when he was hospitalized. Moving all 4 extremities. Nontender no deformity. Bruising on his left arm from prior IVs. Neurologically his eyes are open. He has not answering questions or following commands. Const Vital Signs: 03/23/22 13:42 03/23/22 13:58 03/23/22 14:49 Temperature 98.4 F 98.7 F Temperature Source Temporal Temporal Pulse Rate 120 H 109 H 103 H Respiratory Rate 22 H 30 H 16 Blood Pressure 188/106 H 153/125 H Blood Pressure Mean 133 134 Pulse Ox 97 95 98 Oxygen Delivery Method Room Air Room Air Room Air Oxygen Flow Rate (L/min) 03/23/22 15:00 03/23/22 15:56 03/23/22 15:56 Temperature Temperature Source Pulse Rate 102 H Respiratory Rate 14 Blood Pressure 129/92 H Blood Pressure Mean 104 Pulse Ox 98 88 95 Oxygen Delivery Method Room Air Room Air Nasal Cannula Oxygen Flow Rate (L/min) 2 Positive well nourished, well developed, obese, alert, average body habitus and no limitations; Negative for cachectic, contractures, unkempt or oriented x3 General Appearance ED: active, well kempt and well developed; Negative for cooperative, unkempt, cachectic, contractures, crying, cyanotic or disheveled Orientation / Consciousness: awake; Negative for oriented to person, oriented to place or oriented to time Exam Limitations: no limitations Nutritional Appearance: obese; Negative for cachectic HEENT Reports normocephalic and head/scalp atraumatic normocephalic and normal to inspection Face and Sinus: normal facial exam Nose: external nose normal Mouth ED: Yes oral and palatal mucosa normal Mouth: oral and palatal mucosa normal Eyes PERRL, EOMs intact bilaterally, conjunctivae normal and no scleral icterus General Eye ED: Yes normal appearance of both eyes Periorbital: periorbital findings normal Eyelid: eyelids normal Conjunctiva: conjunctiva normal Sclera: sclera normal Neck full ROM, No nuchal rigidity, no lymphadenopathy, supple, no meningeal signs, no JVD, thyroid normal and No nodes General: normal visual inspection Lymph Lymphatic: no lymphadenopathy noted and no lymphedema noted; Negative for lymphedema, lymphadenopathy or other Chest Wall inspection of chest normal, palpation of chest normal and inspection of breasts normal Resp normal respiratory effort, normal air movement, no retractions, no use of accessory muscles and clear to auscultation bilaterally Cardio regular rhythm, S1 normal heart sound, S2 normal heart sound, no murmurs, no rub, no gallops, no clicks and no JVD; Negative for regular rate or diaphoretic Jugular Venous Distention: Negative for JVD Rate: tachycardic; Negative for regular rate Rhythm: regular rhythm Heart Sounds: S1 normal and S2 normal; Negative for click, gallop, murmur or rub GI normal to inspection, nondistended, normoactive bowel sounds, soft to palpation, non-tender, non-distended and no masses Palpation: soft; Negative for firm, tender, guarding or rigid Back/Spine Back/Spine Narrative: Back not examined at this time due to the patient is in four-point restraints. Uncooperative. Neuro No oriented x3, moves all extremities and no focal motor deficits Neuro Narrative: Patient combative. Postictal. Four-point restraints. Not answering questions or following commands. Sensorium / Orientation: awake and alert Psych Psych Narrative: Postictal. Combative. Flailing. Appearance: Negative for unkempt Skin no rashes or lesions noted, no wounds, no jaundice, no petechiae and no mottling Skin Narrative: Bruising from prior IV sites in the left arm and anticoagulated shots in his abdomen. General Skin Exam: no breakdown Lesions: no lesions Rashes: no rashes Hair: normal MDM MDM MDM Narrative Medical decision making narrative: 56-year-old male with a seizure with a known history of seizure disorder. He is postictal now and combative. Has been placed in four-point restraints. He has been given a milligram of Ativan. He will be worked out. He has had a recent hospitalization in [facility] for reported pancreatitis possibly gallstone pancreatitis. For the squad he had a tachycardia of the 199 200 close range it looked like an SVT on the rhythm strip. That has since resolved. Currently he is in a sinus tachycardia around 110. Repeat exam patient doing well at 4:15 PM. He is awake alert. Is answering questions. He has been taken out of the four-point restraints. His significant other is sitting at bedside. She states he is back to his baseline. They have a follow-up appointment with his primary care physician and a GI consult in at [facility] on Thursday. Both the patient and his significant other are comfortable with him being discharged home today. We went over his test results. He has had elevated liver enzymes and lipase recently. Lab Data Attestation: I reviewed the patient's lab results. Lab results narrative: Unremarkable. White count 9. H&H 14 and 43. PT/INR PTT normal. Electrolytes show a gap 11. BUN and creatinine of 35 and 2.2. He has a history of chronic kidney disease. Glucose 390 he is diabetic. Liver enzymes are elevated. Lipase is 702. He has had recent pancreatitis. Labs: Laboratory Results - last 24 hr 03/23/22 03/23/22 03/23/22 14:00 14:00 14:00 WBC 9.0 RBC 4.71 Hgb 14.0 Hct 44.3 MCV 94.1 H MCH 29.7 MCHC 31.6 L RDW Std Deviation 56.3 H RDW Coeff of Britney 16.6 H Plt Count 243 MPV 12.0 Immature Gran % (Auto) 1.200 H Neut % (Auto) 58.2 Lymph % (Auto) 29.2 [place] % (Auto) 9.2 Eos % (Auto) 1.6 Baso % (Auto) 0.6 Absolute Neuts (auto) 5.3 Absolute Lymphs (auto) 2.63 Nucleated RBC % 0 PT 12.4 INR 1.0 APTT 29.4 Sodium 137 Potassium 4.8 Chloride 99 Carbon Dioxide 27.0 Anion Gap 11 BUN 35 H Creatinine 2.22 H Estim Creat Clear Calc 40.78 Est GFR (MDRD) Af Amer 40 L Est GFR (MDRD) Non-Af 33 L BUN/Creatinine Ratio 15.8 Glucose 390 H Calcium 10.0 Total Bilirubin 2.50 H AST 35 ALT 64 H Alkaline Phosphatase 273 H Total Protein 8.3 H Albumin 3.0 L Globulin 5.3 H Albumin/Globulin Ratio 0.6 L Amylase 44 Lipase 702 H Radiography Chest X-Ray - ED: 1 View, Read by ED Physician, Read by Radiologist, Heart, Lungs, Mediastinum, Bony Structures, No Acute Disease and Chronic Changes Diagnostic Testing: Clinical Impression(s) from Imaging Studies Chest X-Ray 03/23/22 13:56 IMPRESSION: Normal x-ray examination of the chest. Electronically Signed: Erich Yu MD at 15:17 EDT , Chest x-ray: Portable, single view interpreted by myself and radiologist shows no acute abnormality. Normal cardiac silhouette. No infiltrates. Rhythm Strip Rhythm Strip: Sinus Tach Rate: 115 Ectopy: None EKG Initial EKG: Attestation: I personally reviewed and interpreted this EKG as follows: Interpretation: Sinus Rhythm, No Acute Injury Pattern and Sinus Tachycardia Comments: Sinus tachycardia rate of 115 no acute signs of CA or ischemia. Discharge Plan Triage Chief Complaint: Seizure ED Provider: Odell Hardin Dx/Rx/DC Orders Clinical Impression: Seizure, CKD (chronic kidney disease), Elevated liver enzymes, History of pancreatitis, Hyperglycemia due to diabetes mellitus Instructions: ED Seizure, Recurrent (Adult) Prescriptions: No Action losartan 50 MG tablet 50 mg PO DAILY amlodipine 10 MG tablet 10 mg PO DAILY gabapentin 300 MG capsule 300 mg PO BID testosterone cypionate 200 MG/ML oil 200 mg IM QWEEK sildenafil 100 MG tablet 100 mg PO PRN PRN (Reason: erectile dysfunction) levetiracetam 250 MG tablet 1,000 mg PO BID Qty: 120 0RF Rx Instructions: 250 mg 4 tabs bid Referrals: Care Physician,No Primary [Non-Staff] - Activity Restrictions/Additional Instructions: Plenty of fluids and rest. Watch your blood sugars closely. Check your blood sugar within a few hours and again tonight before you go to bed. Take your normal medications as prescribed including both your diabetes meds and your seizure medications. Follow-up with your doctors as scheduled this coming Thursday. Return if feeling worse. Disposition Disposition: Home, Self Care
[2022-03-23] MEDS: LORazepam 2 MG/ML Syringe 1 MG IV (13:59)
--- NOTE | 2022-03-23 14:00 | NURSING ---
Pt arrives via ems status post-ictal ems state they responded pt was in car having seizure. post seizure pt completely rolling around in bed, flailing arms and legs hitting self, and staff. concerned for pt and staff safety. pt disoriented, confused. dr. kam at bedside.
[2022-03-23 14:15] LABS: Absolute Lymphocyte Count 2.63 X10^3/uL (0.83-4.51); Absolute Neutrophil Count 5.3 X10^3/uL (2.0-7.7); Basophil# 0.05 X10^3/uL; Basophil% 0.6 % (0-1); Eosinophil# 0.14 X10^3/uL; Eosinophils% 1.6 % (0-5); Hematocrit 44.3 % (40-54); Lymphocyte # 2.63 X10^3/ul (0.83-4.51); Lymphocyte % 29.2 % (19-41); Mean Corp Hgb Conc 31.6 g/dL (32-36); Mean Corpuscular Hgb 29.7 pg (27.0-32.0); Mean Corpuscular Volume 94.1 fL (80-94); Monocyte# 0.83 X10^3/uL; Monocyte% 9.2 % (0-10); NRBC Flagged by Analyzer 0 % (0-5); Neutrophil # 5.25 X10^3/uL (2.7-7.7); Neutrophil % 58.2 % (47-70); Platelet Count 243 K/mm3 (150-450); RBC Distribution Width CV 16.6 % (11.6-14.6); RBC Distribution Width SD 56.3 fl (35.1-43.9); Red Blood Count 4.71 M/mm3 (4.6-6.2)
[2022-03-23 14:20] LABS: Prothrombin Time (Protime)PT. 12.4 SECONDS (11.7-14.9)
--- NOTE | 2022-03-23 14:20 | ED.RN ---
PT. OUT OF RESTRAINTS
[2022-03-23 14:21] LABS: Partial Thromboplast Time 29.4 Seconds (24.1-36.2)
[2022-03-23 14:25] LABS: ALB/GLOB Ratio 0.6 RATIO (0.9-2.4); AST(SGOT) 35 U/L (15-37); Alanine Aminotransfer ALT/SGPT 64 U/L (16-61); Alkaline Phosphatase 273 U/L (45-117); Amylase 44 U/L (25-115); Anion Gap 11 (5-15); BUN 35 mg/dL (7-18); BUN/Creat Ratio 15.8 RATIO (10-20); Chloride 99 mmol/L (98-107); Creatinine, Serum 2.22 mg/dL (0.70-1.30); EST Glomerular Filtration Rate 33 mL/min (>60); Est Glom Filt Rate - Afr Amer 40 mL/min (>60); Estimated Creatinine Clearance 40.78 ml/min; Globulin 5.3 g/dL (2.2-4.2); Glucose 390 mg/dL (74-106); Lipase 702 U/L (73-393); Potassium 4.8 mmol/L (3.5-5.1); Protein, Total 8.3 g/dL (6.4-8.2); Sodium Level 137 mmol/L (136-145)
[2022-03-23 14:49] VITALS: BP 153/125; PULSE 103; RESP 16; O2SAT 98
[2022-03-23] MEDS: 0.9% Normal Saline 1,000 ML 1000 ML IV (14:49)
[2022-03-23 15:00] VITALS: BP 129/92; PULSE 102; RESP 14; O2SAT 98
[2022-03-23 15:56] VITALS: O2SAT 88; O2SAT 95
[2022-03-23 16:18] VITALS: BP 172/89; PULSE 88; RESP 16; O2SAT 98
[2022-03-23 16:45] LABS: Bedside Glucose 307 mg/dL (74-106)
== END 2022-03-23 16:44 | disposition home or self-care (01) ==
PROVIDERS: Emergency Provider Emergency Medicine; Visit Provider Emergency Medicine
DX: R56.9 Unspecified convulsions (principal); E11.22 Type 2 diabetes mellitus with diabetic chronic kidney disease; E11.65 Type 2 diabetes mellitus with hyperglycemia; N18.9 Chronic kidney disease, unspecified; R74.8 Abnormal levels of other serum enzymes
CPT/HCPCS: 71045; 80053; 82150; 82962; 83690; 85025; 85610; 85730; 93005; 96361; 96374; 99285; J7030; A4216

== ENCOUNTER 2022-07-11 05:01 | Emergency (ER) | payer MEDICARE, SELFPAY ==
[2022-07-11 05:03] VITALS: BP 194/116; PULSE 99; RESP 18; TEMP 35.4; O2SAT 97; BMI 31.6
--- NOTE | 2022-07-11 05:05 | EKG12_ITS ---
Test Reason : DYSRHYTHMIA Blood Pressure : / mmHG Vent. Rate : 090 BPM Atrial Rate : 090 BPM P-R Int : 194 ms QRS Dur : 086 ms QT Int : 358 ms P-R-T Axes : 032 -33 029 degrees QTc Int : 437 ms Normal sinus rhythm Left axis deviation Abnormal ECG Confirmed by JOSE MIGUEL DELATORRE, SUKHDEV ([id number]), index editor MERE ASHBY ([id number]) on 07/14/2022 9:57:39 AM Referred By: MAX Confirmed By:SUKHDEV GILLESPIE MD
--- NOTE | 2022-07-11 05:28 | RAD_ITS ---
EXAM: XR CHEST, 1 VIEW CLINICAL INDICATION: cough TECHNIQUE: Frontal view of the chest. This report was created using [employer] report generation technology. COMPARISON: 03/23/2022. FINDINGS: LUNGS AND PLEURAL SPACES: Unremarkable. No consolidation or edema. No pneumothorax. No effusion. HEART: Unremarkable. Cardiac silhouette not enlarged. MEDIASTINUM: Central airways and mediastinal contour are unremarkable. BONES/JOINTS: Unremarkable. SOFT TISSUES: Unremarkable. RAD/Chest 1 View IMPRESSION: No radiographic evidence of acute cardiopulmonary disease. Electronically Signed: Benji Vazquez MD at 6:07 EST ,
--- NOTE | 2022-07-11 05:28 | CT_ITS ---
EXAM: CT HEAD WITHOUT INTRAVENOUS CONTRAST CLINICAL INDICATION: headache TECHNIQUE: Multiple axial images were obtained of the head without intravenous contrast. This CT exam was performed using one or more of the following dose reduction techniques: automated exposure control, adjustment of the mA and/or kV according to patient size, and/or use of iterative reconstruction technique. This report was created using [employer] report generation technology. RADIATION DOSE: CTDIvol = 44.99 mGy, DLP = 846.73 mGy-cm. COMPARISON: None. FINDINGS: BRAIN AND EXTRA-AXIAL SPACES: Unremarkable. No intra- or extra-axial hemorrhage. No evidence of acute infarct. No intracranial mass or mass effect. There is preservation of the wu/white matter interface. Posterior fossa structures are unremarkable. Ventricles are appropriate for age. No hydrocephalus. Basal cisterns are patent. BONES/JOINTS: Unremarkable. No discrete lytic or blastic abnormalities. SINUSES: Unremarkable as visualized. Clear. MASTOID AIR CELLS: Unremarkable. Clear. ORBITS: Visualized globes, extraocular muscles, optic nerves and retrobulbar fat appear unremarkable. CT/Brain/Head without Contrast IMPRESSION: Negative head/brain CT without intravenous contrast. Electronically Signed: Benji Vazquez MD at 6:22 EST ,
[2022-07-11] MEDS: Labetalol (Prefilled) 20 MG/4 ML IV (05:38)
[2022-07-11] MEDS: Ondansetron 4 MG/2 ML Vial IV ×2 (05:38→06:30)
[2022-07-11 05:44] LABS: Absolute Lymphocyte Count 2.87 X10^3/uL (0.83-4.51); Absolute Neutrophil Count 5.7 X10^3/uL (2.0-7.7); Basophil# 0.08 X10^3/uL; Basophil% 0.8 % (0-1); Eosinophil# 0.21 X10^3/uL; Eosinophils% 2.2 % (0-5); Lymphocyte # 2.87 X10^3/ul (0.83-4.51); Lymphocyte % 29.7 % (19-41); Mean Corp Hgb Conc 32.1 g/dL (32-36); Mean Corpuscular Hgb 29.9 pg (27.0-32.0); Mean Platelet Vol. 11.1 fl (6.2-12.0); Monocyte# 0.72 X10^3/uL; Monocyte% 7.5 % (0-10); NRBC Flagged by Analyzer 0 % (0-5); Neutrophil # 5.71 X10^3/uL (2.7-7.7); Neutrophil % 59.1 % (47-70); Platelet Count 212 K/mm3 (150-450); RBC Distribution Width CV 14.3 % (11.6-14.6); RBC Distribution Width SD 48.7 fl (35.1-43.9); Red Blood Count 6.16 M/mm3 (4.6-6.2); White Blood Count 9.7 K/mm3 (4.4-11.0)
[2022-07-11 05:47] LABS: Hematocrit 57.3 % (40-54)
[2022-07-11 05:48] LABS: Differential Indicated SCAN CRITERIA MET; Hemoglobin 18.4 g/dL (13.0-16.5)
[2022-07-11 06:02] VITALS: BP 164/89; PULSE 89; RESP 18; O2SAT 96
[2022-07-11] MEDS: cloNIDine HCl 0.2 MG Tablet PO (06:09)
--- NOTE | 2022-07-11 06:11 | EDS_ITS ---
HPI History of Present Illness Chief Complaint: Hypertension Narrative Narrative: Patient is a 56-year-old male with past medical history of hypertension diabetes and seizure disorder. He states that when he was at an outside hospital he was taken off his blood pressure medications. He states he has been doing well but has had congestion and cough and sinus issues for the past week or so. He states that last night and this morning he has had headache with bouts of nausea and vomiting. He denies any chest pain or shortness of breath or change in vision. He denies any recent head injury. He states he took his blood pressure this morning and it was elevated and with his constellation of symptoms he was concerned and therefore comes in for evaluation. [facility] Medical History Diabetes Hypertension Seizure Home Medications losartan 50 mg tablet 25 mg PO DAILY blood pressure 08/27/19 [History Last Taken Unknown] sildenafil 100 mg tablet 100 mg PO PRN PRN erectile dysfunction 08/27/19 [History Last Taken Unknown] testosterone cypionate 200 mg/mL intramuscular oil 200 mg IM QWEEK hormones 08/27/19 [History Last Taken Unknown] levetiracetam 250 mg tablet 1,000 mg PO BID #120 tabs 08/30/19 [Rx Last Taken Unknown] allopurinol 100 mg tablet 300 mg PO DAILY 07/11/22 [History Last Taken Unknown] azelastine 137 mcg (0.1 %) nasal spray aerosol 2 spray intranasal BID #30 mL 07/11/22 [Rx Last Taken Unknown] dapagliflozin 5 mg tablet (Farxiga) 5 mg PO DAILY 07/11/22 [History Last Taken Unknown] insulin NPH isoph U-100 human 100 unit/mL subcutaneous suspension (Novolin N NPH U-100 Insulin isophane) unit subcut BID PRN PRN Hyperglycemia 07/11/22 [History Last Taken Unknown] losartan 50 mg tablet 50 mg PO DAILY 30 days #30 tabs 07/11/22 [Rx Last Taken Unknown] ondansetron 4 mg disintegrating tablet 4 mg PO TID PRN nausea and vomiting #21 tabs 07/11/22 [Rx Last Taken Unknown] pantoprazole 40 mg tablet,delayed release 40 mg PO DAILY 07/11/22 [History Last Taken Unknown] sodium zirconium cyclosilicate 10 gram oral powder packet (Lokelma) 10 g PO DAILY 07/11/22 [History Last Taken Unknown] zonisamide 100 mg capsule 100 mg PO DAILY 07/11/22 [History Last Taken Unknown] Allergy/AdvReac Type Severity Reaction Status Date / Time metoclopramide [From Reglan] Allergy Unknown Verified 07/11/22 05:02 Penicillins [PCN] Allergy Unknown Verified 07/11/22 05:02 Social History Smoking Status: Never smoker ROS ROS ED Constitutional Constitutional ED: Denies chills or fever(s) Eyes Eyes: Denies change in vision ENT ENT ED: Reports rhinorrhea; Denies sore throat Cardiovascular Cardiovascular: Denies chest pain Respiratory/Chest Respiratory/Chest: Reports cough; Denies dyspnea Gastrointestinal Gastrointestinal: Reports nausea and vomiting; Denies abdominal pain or diarrhea Genitourinary Genitourinary ED: Denies dysuria or hematuria Musculoskeletal Musculoskeletal: Denies myalgias Integumentary Denies rash Neurologic Neurologic: Reports headache(s); Denies paresthesias or weakness Hematologic/Lymphatic Hematologic/Lymphatic: Denies easy bleeding or easy bruising EXAM Physical Exam Const Vital Signs: 07/11/22 05:03 07/11/22 05:05 07/11/22 06:02 Temperature 95.7 F L Temperature Source Temporal Pulse Rate 99 89 Respiratory Rate 18 18 Respiratory Effort Normal Respiratory Pattern Normal Blood Pressure 194/116 H 164/89 H Blood Pressure Mean 142 114 Pulse Ox 97 96 Oxygen Delivery Method Room Air Room Air 07/11/22 06:59 Temperature Temperature Source Pulse Rate 85 Respiratory Rate 18 Respiratory Effort Respiratory Pattern Blood Pressure 146/82 H Blood Pressure Mean Pulse Ox 93 Oxygen Delivery Method Positive well nourished, well developed and obese General Appearance ED: well developed Nutritional Appearance: obese HEENT Reports dry mucous membranes HEENT Narrative: Cobblestoning the posterior pharynx consistent with sinus drainage without airway edema or compromise or secondary changes to suggest infection Mouth ED: Yes dry mucous membranes Mouth: dry mucous membranes Eyes PERRL and EOMs intact bilaterally Neck supple Neck Narrative: No nuchal rigidity or meningeal signs present Positive anterior cervical lymphadenopathy noted Resp normal respiratory effort Resp Narrative: Breath sounds are diminished throughout with faint wheeze and rhonchi in the bilateral lower lobes without nasal flaring retractions tachypnea or accessory muscle use Cardio regular rate and regular rhythm Rate: other Other Details: Radial pulses are plus 2 out of 4 bilaterally are equal and symmetric Carotid pulses are equal and symmetric as well GI normal to inspection, nondistended, normoactive bowel sounds, non-tender, non- distended and no masses GI Narrative: No voluntary guarding or rigidity no pulsatile mass Auscultation: normoactive bowel sounds Palpation: soft Extremity normal to inspection Extremity Narrative: No asymmetric edema no pitting edema negative Homans' sign bilaterally Neuro oriented x3, CN's II-XII intact bilaterally and no sensory deficits noted Neuro Narrative: Cranial nerves II through XII are grossly intact there are no focal neurologic deficit. No pronator drift no dysmetria no truncal ataxia. NIH stroke scale score of 0 Sensorium / Orientation: alert Psych Psych Narrative: Patient has a flat affect Skin no rashes or lesions noted MDM MDM MDM Narrative Medical decision making narrative: Patient presented to the ER hypertensive but otherwise with a normal neurologic exam and no focal findings for endorgan damage. However as he reported he had a headache I did elect to perform a noncontrast head CT to check for possible mass or bleed as a cause of his symptoms. Also as he has had congestion and cough a chest x-ray was ordered and a viral swab to check for COVID as a cause of his symptoms. Viral swab was negative and chest x-ray revealed no obvious infiltrate. Patient does have history of chronic kidney disease and diabetes and basic blood work showed a creatinine of 1.9 which is actually better than his previous value. Troponin is also negative which correlates with his EKG indicating no signs of cardiac event. Therefore at this time patient does not have signs of acute kidney injury ACS or acute neurologic dysfunction. After he was medicated in the ER his blood pressure reduced by approximately 25% which is the value/goal for reduction in the ER. Upon reevaluation he reported feeling better and his neuro exam remained normal. Therefore this time as patient does not have signs of brain tumor/bleed or mass there are no signs of acute cardiac event or acute kidney injury or severe electrolyte derangement patient is safe for discharge. Lab Data Attestation: I reviewed the patient's lab results. Labs: Laboratory Results - last 24 hr 07/11/22 07/11/22 05:10 05:10 WBC 9.7 RBC 6.16 Hgb 18.4 H* Hct 57.3 H MCV 93.0 MCH 29.9 MCHC 32.1 RDW Std Deviation 48.7 H RDW Coeff of Britney 14.3 Plt Count 212 MPV 11.1 Immature Gran % (Auto) 0.700 Neut % (Auto) 59.1 Lymph % (Auto) 29.7 [place] % (Auto) 7.5 Eos % (Auto) 2.2 Baso % (Auto) 0.8 Absolute Neuts (auto) 5.7 Absolute Lymphs (auto) 2.87 Nucleated RBC % 0 Differential Comment SCANNED Diff Path Review May foll Reactive Lymphocytes RARE Sodium 135 L Potassium 4.2 Chloride 102 Carbon Dioxide 23.0 Anion Gap 10 BUN 44 H Creatinine 1.90 H Estim Creat Clear Calc 47.65 Est GFR (MDRD) Af Amer 47 L Est GFR (MDRD) Non-Af 39 L BUN/Creatinine Ratio 23.2 H Glucose 131 H Calcium 10.1 Troponin I High Sens 8 Radiography Diagnostic Testing: Clinical Impression(s) from Imaging Studies Brain CT 07/11/22 05:28 IMPRESSION: Negative head/brain CT without intravenous contrast. Electronically Signed: Benji Vazuqez MD at 6:22 EST , Chest X-Ray 07/11/22 05:28 IMPRESSION: No radiographic evidence of acute cardiopulmonary disease. Electronically Signed: Benji Vazquez MD at 6:07 EST , 1 view chest x-ray as interpreted by the emergency medicine physician reveals no acute infiltrate pneumothorax or pleural effusion Discharge Plan Triage Chief Complaint: Hypertension ED Provider: Wallace Andres Dx/Rx/DC Orders Clinical Impression: Accelerated hypertension, CKD (chronic kidney disease), Viral syndrome Instructions: ED Hypertension, Established, ED Viral Syndrome (Adult) Prescriptions: New ondansetron 4 mg tablet,disintegrating 4 mg PO TID PRN (Reason: nausea and vomiting) Qty: 21 0RF azelastine 137 mcg (0.1 %) aerosol,spray 2 spray intranasal BID Qty: 30 0RF Rx Instructions: administer into each nostril losartan 50 mg tablet 50 mg PO DAILY 30 Days Qty: 30 0RF No Action losartan 50 MG tablet 25 mg PO DAILY testosterone cypionate 200 MG/ML oil 200 mg IM QWEEK sildenafil 100 MG tablet 100 mg PO PRN PRN (Reason: erectile dysfunction) levetiracetam 250 MG tablet 1,000 mg PO BID Qty: 120 0RF Rx Instructions: 250 mg 4 tabs bid allopurinol 100 mg tablet 300 mg PO DAILY zonisamide 100 mg capsule 100 mg PO DAILY pantoprazole 40 mg Tablet,Delayed Release (Dr/Ec) 40 mg PO DAILY Novolin N NPH U-100 Insulin 100 unit/mL suspension SUBCUT BID PRN PRN (Reason: Hyperglycemia) Label Comments: INJECT 21 units twice daily Rx Instructions: sliding scale Farxiga 5 mg tablet 5 mg PO DAILY Label Comments: Take 1 tablet by mouth daily with breakfast. Lokelma 10 gram powder in packet 10 g PO DAILY Primary Care Provider: Rebecca Doctor,Out of Referrals: [facility] Doctor,Out of [Primary Care Provider] - Activity Restrictions/Additional Instructions: Please follow-up with your family doctor to discuss if you need to increase your losartan dose or add other medication to control blood pressure. Try to keep y ourself hydrated because of your chronic kidney disease and return to the ER should you have any further concerns Disposition Disposition: Home, Self Care
[2022-07-11 06:14] LABS: Differential Comment SCANNED; Reactive Lymphocyte RARE
[2022-07-11 06:26] LABS: Anion Gap 10 (5-15); BUN 44 mg/dL (7-18); BUN/Creat Ratio 23.2 RATIO (10-20); Calcium,Total 10.1 mg/dL (8.5-10.1); Chloride 102 mmol/L (98-107); EST Glomerular Filtration Rate 39 mL/min (>60); Est Glom Filt Rate - Afr Amer 47 mL/min (>60); Estimated Creatinine Clearance 47.65 ml/min; Glucose 131 mg/dL (74-106); Potassium 4.2 mmol/L (3.5-5.1); Sodium Level 135 mmol/L (136-145); Troponin-I HS 8 pg/mL (3.0-78.0)
[2022-07-11 06:59] VITALS: BP 146/82; PULSE 85; RESP 18; O2SAT 93
[2022-07-11 15:42] LABS: Pathologist Review Reviewed
== END 2022-07-11 07:47 | disposition home or self-care (01) ==
PROVIDERS: Emergency Provider Emergency Medicine; Visit Provider Emergency Medicine
DX: I12.9 Hypertensive chronic kidney disease with stage 1 through stage 4 chronic kidney disease, or unspecified chronic kidney disease (principal); E11.22 Type 2 diabetes mellitus with diabetic chronic kidney disease; B34.9 Viral infection, unspecified; N18.9 Chronic kidney disease, unspecified; R11.2 Nausea with vomiting, unspecified; R51.9 Headache, unspecified; E66.9 Obesity, unspecified; Z20.822 Contact with and (suspected) exposure to COVID-19
CPT/HCPCS: 70450; 71045; 80048; 84484; 85025; 87428; 93005; 96374; 96375; 96376; 99284; A4216; J2405

== ENCOUNTER → 2023-01-12 | Outpatient (CLI) | payer MEDICARE, MEDICAID, SELFPAY | END | disposition home or self-care (01) | LOC: SL 20:21 | PROVIDERS: Visit Provider Psychiatry & Neurology Sleep Medicine | DX: G47.33 Obstructive sleep apnea (adult) (pediatric) (principal); E66.9 Obesity, unspecified; Z68.30 Body mass index [BMI] 30.0-30.9, adult; R06.89 Other abnormalities of breathing | CPT/HCPCS: 95811 ==